=== PATIENT | female | born 1970 | race Caucasian/White ===

== ENCOUNTER 2022-11-16 11:46 | Outpatient (REF) | payer BC, SELFPAY ==
--- NOTE | 2022-11-16 11:00 | PAPFT_PTH ---
PATIENT: Daja Mclaughlin [facility][id number] AGE/SX: 52/F ROOM: RE11/16/[address]: Toñito Jean-Baptiste : 1970 BED: DIS: 11/16/2022 SPEC #: [id number] RECD: 11/17/22 13:05 STATUS: DEBORAH RECarolyn #: [id number] ALONA: 11/16/22 11:[address]: Melida [place] DEPT: [facility] Cytology RECD BY: Diana Guerrero ENTERED: 11/17/22 13:06 SP TYPE: PAPFT OTHR DR: Katerine Nam Tissues: 1 - CX/ENDOCX FOR PAP SMEARS Procedures: PAP THIN PREP/[facility] Screening HPV DNA PROBE Comments: [id number]
== END 2022-11-16 11:47 | disposition home or self-care (01) ==
LOC: NCHCN 11:46
PROVIDERS: PCP Physician Assistant Medical; Visit Provider Nurse Practitioner Family
DX: Z12.4 Encounter for screening for malignant neoplasm of cervix (principal); Z11.51 Encounter for screening for human papillomavirus (HPV); Z01.419 Encounter for gynecological examination (general) (routine) without abnormal findings
CPT/HCPCS: 88142; 87624

== ENCOUNTER 2022-11-23 08:54 | Outpatient (REF) | payer BC, SELFPAY ==
[2022-11-23 20:16] LABS: ALT 37 U/L (14-59); AST 15 U/L (15-37); Albumin 4.1 g/dL (3.4-5.0); Alkaline Phosphatase 60 U/L (46-116); Anion Gap 5.1 mmol/L (3-11); BUN 12 mg/dL (7-18); CO2 29.9 mmol/L (21.0-32.0); CREATININE 0.9 mg/dL (0.55-1.02); Calcium 9.1 mg/dL (8.5-10.1); Calculated LDL 113 mg/dL (<100); Chloride 106 mmol/L (98-107); Cholesterol 203 mg/dL (<200); Glucose 85 mg/dL (74-106); HDL Cholesterol 83 mg/dL (40-60); Potassium 4.1 mmol/L (3.5-5.1); Sodium 141 mmol/L (136-145); Total Protein 7.4 g/dL (6.4-8.2); Triglyceride 36 mg/dL (<150)
[2022-11-23 20:34] LABS: Amylase 54 U/L (25-115)
== END 2022-11-23 08:55 | disposition home or self-care (01) ==
LOC: NCHCN 08:54
PROVIDERS: PCP Physician Assistant Medical; Visit Provider Nurse Practitioner Family
DX: Z00.00 Encounter for general adult medical examination without abnormal findings (principal); Z13.220 Encounter for screening for lipoid disorders; R10.11 Right upper quadrant pain
CPT/HCPCS: 80053; 80061; 82150